=== PATIENT | male | born 2000 | race Caucasian/White ===

== ENCOUNTER 2019-11-07 18:38 | Emergency (ER) | payer SELFPAY ==
[~2019-11-07] VITALS: Ht 175.3 cm; Wt 81.6 kg
[~2019-11-07 18:38] MED LIST: [UNRECOGNIZED DRUG - CODE] PO
[2019-11-07 19:00] VITALS: BP 143/86
[2019-11-07] MEDS ORDERED: IBUPROFEN 600 MG TAB PO ONE (19:05)
--- NOTE | 2019-11-07 19:30 | NUR ---
PT AMBULATED TO BED 11 WITH PARENT
--- NOTE | 2019-11-07 19:30 | NUR ---
Genevieve bush in ED - 11/07/19 at 1930 by [facility] pt ambulated to ER bed 11
--- NOTE | 2019-11-07 19:45 | NUR ---
19 Y/O MALE C/O RIGHT TESTICLE PAIN X 30MINS AGO. RIGHT TESTICLE SHOWS SWELLING AND TENDERNESS TO TOUCH. VSS. A & O X4. STEADY GAIT. RATES PAON 9/10 AND DESCRIBES IT BURNING. DENIES ANY DYSURIA OR BLOOD IN URINE. NKA. NO PMH.
[2019-11-07 20:42] VITALS: BP 143/86
--- NOTE | 2019-11-07 20:42 | NUR ---
Patient discharged with v/s stable. Written and verbal after care instructions given and explained to parent/guardian BY DR ANG. Parent/Guardian verbalized understanding of instructions. Ambulatory with . All questions addressed prior to discharge. ID band removed. Parent/Guardian advised to follow up with PMD. Rx of CIRPO NAPROSYN given. Parent/Guardian educated on indication of medication including possible reaction and side effects. Opportunity to ask questions provided and answered.
== END 2019-11-07 20:42 | disposition home or self-care (01) ==
LOC: MED 18:38
DX: N45.1 Epididymitis (principal); Z79.899 Other long term (current) drug therapy
CPT/HCPCS: 76870; 99284; Q0092

== ENCOUNTER 2020-06-24 16:29 | Emergency (ER) | payer MEDICAID ==
[~2020-06-24] VITALS: Ht 182.9 cm; Wt 72.6 kg
[2020-06-24 16:35] VITALS: BP 148/97
--- NOTE | 2020-06-24 17:04 | NUR ---
PA ESTEVEZ EVALUATING PT AT THIS TIME
--- NOTE | 2020-06-24 17:13 | NUR ---
EMT AT BEDSIDE FOR EKG
--- NOTE | 2020-06-24 17:16 | NUR ---
TO XRAY VIA W/C
--- NOTE | 2020-06-24 17:21 | NUR ---
PT BACK TO [facility] VIA W/C
--- NOTE | 2020-06-24 17:39 | NUR ---
ROYA ESTEVEZ SPEAKING W/ PT AT THIS TIME
[2020-06-24 18:13] VITALS: BP 140/88
== END 2020-06-24 18:13 | disposition home or self-care (01) ==
LOC: MED 16:29
DX: R07.9 Chest pain, unspecified (principal); R03.0 Elevated blood-pressure reading, without diagnosis of hypertension
CPT/HCPCS: 71045; 93005; 99283

== ENCOUNTER 2022-06-26 14:46 | Emergency (ER) | payer SELFPAY ==
[~2022-06-26] VITALS: Ht 180.3 cm; Wt 92.5 kg
[2022-06-26 14:52] VITALS: BP 153/85
--- NOTE | 2022-06-26 18:05 | NUR ---
21/M PRESENTS TO ED WITH C/O ABDOMINAL PAIN X3 DAYS AND DIARRHEA TODAY. REPORTS TAKING IBUPROFEN FOR PAIN WITH NO RELIEF, DENIES N/V.
[2022-06-26 18:39] LABS: BASOPHILS # (AUTO) 0.1 K/uL (0.00-0.22); BASOPHILS % (AUTO) 0.5 % (0.0-2.0); EOSINOPHILS % (AUTO) 0.4 % (0.0-4.0); HEMATOCRIT 44.6 % (36-52); HEMOGLOBIN 14.9 g/dL (12.0-18.0); LYMPHOCYTES # (AUTO) 2.5 K/uL (2.0-11.5); MEAN CORPUSCULAR HEMOGLOBIN 30 pg (27-31); MEAN CORPUSCULAR HGB CONC 33 g/dL (33-37); MEAN CORPUSCULAR VOLUME 89.4 fL (80-94); MONOCYTES # (AUTO) 0.7 K/uL (0.8-1.0); MONOCYTES % (AUTO) 6.8 % (1.7-9.3); NEUTROPHILS # (AUTO) 6.8 K/uL (1.8-7.7); NEUTROPHILS % (AUTO) 67.3 % (42.2-75.2); PLATELET COUNT (AUTO) 210 K/uL (140-450); RED BLOOD CELL COUNT(AUTO) 4.98 MIL/uL (4.20-6.10); RED CELL DISTRIBUTION WIDTH 13.4 % (11.6-13.7); WHITE BLOOD COUNT (AUTO) 10.1 K/uL (4.8-10.8)
[2022-06-26 19:30] LABS: ALBUMIN 4.3 g/dL (3.4-5.0); CARBON DIOXIDE 26.9 mmol/L (21-32); POTASSIUM 3.9 mmol/L (3.5-5.1); TOTAL BILIRUBIN 0.5 mg/dL (0.0-1.0)
[2022-06-26] MEDS ORDERED: MIRABULK PO (19:38)
[2022-06-26 19:53] VITALS: BP 132/69
--- NOTE | 2022-06-26 19:53 | NUR ---
Patient discharged with v/s stable. Written and verbal after care instructions ABOUT ABDOMINAL PAIN given and explained. Patient alert, oriented and verbalized understanding of instructions. Ambulatory with steady gait. All questions addressed prior to discharge. ID band removed. Patient advised to follow up with PMD. Rx of MIRALAX given. Patient educated on indication of medication including possible reaction and side effects. Opportunity to ask questions provided and answered.
== END 2022-06-26 19:53 | disposition home or self-care (01) ==
LOC: MED 14:46
DX: R10.32 Left lower quadrant pain (principal); K59.00 Constipation, unspecified; R19.7 Diarrhea, unspecified; Z79.899 Other long term (current) drug therapy
CPT/HCPCS: 36415; 80053; 83690; 85025; 99283